=== PATIENT | male | born 1955 | race Caucasian/White ===

== ENCOUNTER 2019-10-18 21:00 | Emergency (ER) | payer OTHER ==
[2019-10-18] MEDS ORDERED: HYDROCODONE/APAP 5/325 MG TAB ONE (21:59)
--- NOTE | 2019-10-18 23:20 | ER ---
Nurse's Notes [facility] Name: Garrett Colon Age: 64 yrs Sex: Female : 1955 Arrival Date: 10/18/2019 Time: 21:06 Bed 2 Private MD: Diagnosis: Pain in right foot Presentation: 10/17 21:30 Chief complaint: Patient states: i have right foot sprain since July, xray was done for mg2 my ankle that time but they didn't do foot xray before. Coronavirus screen: Client denies travel out of the [place] in the last 14 days. At this time, the client does not indicate any symptoms associated with coronavirus-19. Ebola Screen: No symptoms or risks identified at this time. Initial Sepsis Screen: Does the patient meet any 2 criteria? No. Patient's initial sepsis screen is negative. Does the patient have a suspected source of infection? No. Patient's initial sepsis screen is negative. Risk Assessment: Do you want to hurt yourself or someone else? Patient reports no desire to harm self or others. Onset of symptoms was October 2019. 21:30 Method Of Arrival: Ambulatory mg2 21:30 Acuity: CHEIKH 4 mg2 Triage Assessment: 21:30 General: Appears uncomfortable, Behavior is cooperative. EENT: No deficits noted. mt2 Neuro: No deficits noted. Cardiovascular: No deficits noted. Respiratory: No deficits noted. GI: No deficits noted. : No deficits noted. Derm: No deficits noted. Musculoskeletal: Reports pain in right foot. Injury Description: twisted right ankle. Historical: - Allergies: 21:33 Erythromycin; mg2 - Home Meds: 21:33 anxiety medicine [Active]; mg2 - PMHx: 21:33 Asthma; anxiety; tremors; mg2 - PSHx: 21:33 None; mg2 - Immunization history:: Flu vaccine status is unknown. - Social history:: Smoking status: Patient denies any tobacco usage or history of. Patient/guardian denies using alcohol, street drugs, IV drugs. Screenin:33 Abuse screen: Denies threats or abuse. Denies injuries from another. Nutritional mg2 screening: No deficits noted. Tuberculosis screening: No symptoms or risk factors identified. Fall Risk None identified. Assessment: 21:33 General: Appears in no apparent distress. comfortable. Pain: Complains of pain in right mg2 foot. Neuro: Level of Consciousness is awake, alert, obeys commands, Oriented to person, place, time, situation. Cardiovascular: Capillary refill < 3 seconds Patient's skin is warm and dry. Respiratory: Airway is patent Respiratory effort is even, unlabored, Respiratory pattern is regular, symmetrical. GI: No signs and/or symptoms were reported involving the gastrointestinal system. : No signs and/or symptoms were reported regarding the genitourinary system. EENT: No signs and/or symptoms were reported regarding the EENT system. Derm: Skin is intact, is healthy with good turgor, Skin is pink, warm \T\ dry. normal. Musculoskeletal: Circulation, motion, and sensation intact. Capillary refill < 3 seconds, Reports pain in right foot. 22:17 Reassessment: Patient appears in no apparent distress at this time. Patient and/or mg2 family updated on plan of care and expected duration. Pain level reassessed. Patient is alert, oriented x 3, equal unlabored respirations, skin warm/dry/pink. 23:26 Reassessment: Patient and/or family updated on plan of care and expected duration. Pain mt2 level reassessed. Patient is alert, oriented x 3, equal unlabored respirations, skin warm/dry/pink. Patient denies pain at this time. General: Appears comfortable, Behavior is cooperative. Pain: Denies pain. Vital Signs: 21:30 BP 144 / 101; Pulse 88; Resp 18; Temp 97.6; Pulse Ox 95% on R/A; Weight 90.72 kg; mg2 Height 5 ft. 11 in. (180.34 cm); 22:02 BP 127 / 79; Pulse 82; Resp 16; Pulse Ox 97% on R/A; Pain 6/10; mt2 22:16 Pulse 77; Resp 18; Pulse Ox 95% on R/A; mg2 22:17 BP 134 / 84; mg2 23:17 BP 138 / 87; Pulse 76; Resp 18; Pulse Ox 98% on R/A; mg2 21:30 Body Mass Index 27.89 (90.72 kg, 180.34 cm) mg2 ED Course: 21:06 Patient arrived in ED. cf2 21:21 Mat Patel RN is Primary Nurse. mg2 21:24 Stas Maharaj NP is PHCP. pm1 21:24 Jefferson Santos MD is Attending Physician. pm1 21:32 Triage completed. mg2 21:33 Arm band placed on. mg2 21:34 Patient has correct armband on for positive identification. mg2 21:34 No provider procedures requiring assistance completed. mg2 21:49 Foot Right 3 View XRAY In Process Unspecified. EDMS 23:27 Patient did not have IV access during this emergency room visit. mt2 Administered Medications: 21:49 Drug: [place] 5 mg-325 mg 1 tabs Route: PO; mg2 22:17 Follow up: Response: No adverse reaction; RASS: Alert and Calm (0) mg2 22:33 Follow up: Response: No adverse reaction; Pain is decreased mt2 Outcome: 23:20 Discharge ordered by MD. pm1 23:26 Discharged to home ambulatory. mt2 23:26 Condition: good 23:26 Discharge instructions given to Instructed on discharge instructions, follow up and referral plans. medication usage, Demonstrated understanding of instructions, follow-up care, medications, Prescriptions given X 1. 23:56 Patient left the ED. mg2 Signatures: Dispatcher [employer] EDUT Stas Maharaj TRUCK HOP TRUCK HOP pm1 Mat Patel, RN RN mg2 Shivani Nagel cf2 Sakina Corbin RN RN mt2 Corrections: (The following items were deleted from the chart) 23:56 23:26 Discharge instructions given to Instructed on discharge instructions, follow up mg2 and referral plans. medication usage, Demonstrated understanding of instructions, follow-up care, medications, mt2
--- NOTE | 2019-10-18 23:20 | EDPHYS ---
Physician Documentation [facility] Name: Garrett Colon Age: 64 yrs Sex: Female : 1955 Arrival Date: 10/18/2019 Time: 21:06 Bed 2 Private MD: ED Physician Jefferson Santos HPI: 10/17 21:45 This 64 yrs old Female presents to ER via Ambulatory with complaints of Foot pm1 Pain, Foot Injury. 21:45 The patient presents with pain. The complaints affect the medial aspect of right foot pm1 and dorsum of right foot. Context: [place] resulted from stepped into a hole in the sand 2 months ago, the patient can fully bear weight, the patient is able to ambulate. Modifying factors: The symptoms are alleviated by nothing. the symptoms are aggravated by weight bearing, uneven surfaces. Associated signs and symptoms: The patient has no apparent associated signs or symptoms. Treatment prior to arrival includes: over the counter medications. Severity of symptoms: in the emergency department the symptoms are unchanged. Patient presents to the ER with complaints of right foot pain for the past 2 months. He stepped into a hole in the sand and went to the ER at that time. Was diagnosed with a foot sprain and is presenting today because his pain has not gone away. Historical: - Allergies: 21:33 Erythromycin; mg2 - Home Meds: 21:33 anxiety medicine [Active]; mg2 - PMHx: 21:33 Asthma; anxiety; tremors; mg2 - PSHx: 21:33 None; mg2 - Immunization history:: Flu vaccine status is unknown. - Social history:: Smoking status: Patient denies any tobacco usage or history of. Patient/guardian denies using alcohol, street drugs, IV drugs. ROS: 21:45 Constitutional: Negative for fever, chills, and weight loss, Cardiovascular: Negative pm1 for chest pain, palpitations, and edema, Respiratory: Negative for shortness of breath, cough, wheezing, and pleuritic chest pain. 21:45 Skin: Negative for injury, rash, and discoloration, Neuro: Negative for headache, weakness, numbness, tingling, and seizure. 21:45 MS/extremity: Positive for pain, of the dorsum of right foot and medial aspect of right foot, Negative for decreased range of motion, deformity. Exam: 21:45 Constitutional: This is a well developed, well nourished patient who is awake, alert, pm1 and in no acute distress. Skin: Warm, dry with normal turgor. Normal color with no rashes, no lesions, and no evidence of cellulitis. 21:45 Cardiovascular: Rate: normal, Rhythm: regular, Pulses: no pulse deficits are appreciated. 21:45 Respiratory: Exam negative for acute changes, respiratory distress, shortness of breath. 21:45 Musculoskeletal/extremity: Extremities: grossly normal except: noted in the dorsum of right foot and medial aspect of right foot: tenderness, There is no evidence of ecchymosis, erythema, swelling, ROM: intact in all extremities. Vital Signs: 21:30 BP 144 / 101; Pulse 88; Resp 18; Temp 97.6; Pulse Ox 95% on R/A; Weight 90.72 kg; mg2 Height 5 ft. 11 in. (180.34 cm); 22:02 BP 127 / 79; Pulse 82; Resp 16; Pulse Ox 97% on R/A; Pain 6/10; mt2 22:16 Pulse 77; Resp 18; Pulse Ox 95% on R/A; mg2 22:17 BP 134 / 84; mg2 23:17 BP 138 / 87; Pulse 76; Resp 18; Pulse Ox 98% on R/A; mg2 21:30 Body Mass Index 27.89 (90.72 kg, 180.34 cm) mg2 MDM: 21:24 Patient medically screened. pm1 23:19 Data reviewed: vital signs. Data interpreted: Pulse oximetry: on room air is 98 %. pm1 Interpretation: normal. Counseling: I had a detailed discussion with the patient and/or guardian regarding: the historical points, exam findings, and any diagnostic results supporting the discharge/admit diagnosis, radiology results, the need for outpatient follow up, to return to the emergency department if symptoms worsen or persist or if there are any questions or concerns that arise at home. 10/17 21:28 Order name: Foot Right 3 View XRAY pm1 Administered Medications: 21:49 Drug: [place] 5 mg-325 mg 1 tabs Route: PO; mg2 22:17 Follow up: Response: No adverse reaction; RASS: Alert and Calm (0) mg2 22:33 Follow up: Response: No adverse reaction; Pain is decreased mt2 Disposition: 10/18 07:02 Co-signature as Attending Physician, Jefferson Santos MD I agree with the assessment and tw4 plan of care. Disposition: 10/18/19 23:20 Discharged to Home. Impression: Pain in right foot. - Condition is Stable. - Discharge Instructions: Foot Pain. - Prescriptions for Tylenol- Codeine #3 300-30 mg Oral Tablet - take 2 tablets by ORAL route every 6 hours As needed; 20 tablet. - Medication Reconciliation Form, Thank You Letter, Antibiotic Education, Prescription Opioid Use form. - Follow up: Emergency Department; When: As needed; Reason: Worsening of condition. Follow up: Private Physician; When: 2 - 3 days; Reason: Recheck today's complaints, Continuance of care, Re-evaluation by your physician. - Problem is new. - Symptoms have improved. Signatures: Dispatcher [employer] EDMS Stas Maharaj, BELLY DUMP DRIVER BELLY DUMP DRIVER pm1 Jefferson Santos MD MD tw4 Mat Patel RN RN mg2 Sakina Corbin RN mt2 Corrections: (The following items were deleted from the chart) 10/17 23:56 23:20 10/18/2019 23:20 Discharged to Home. Impression: Pain in right foot. Condition is mg2 Stable. Forms are Medication Reconciliation Form, Thank You Letter, Antibiotic Education, Prescription Opioid Use. Follow up: Emergency Department; When: As needed; Reason: Worsening of condition. Follow up: Private Physician; When: 2 - 3 days; Reason: Recheck today's complaints, Continuance of care, Re-evaluation by your physician. Problem is new. Symptoms have improved. pm1
--- NOTE | 2019-10-19 08:13 | RAD REPORT ---
EXAM DESCRIPTION: RAD - Foot Right 3 View - 10/18/2019 9:51 pm CLINICAL HISTORY: PAIN, persistent foot pain following trauma COMPARISON: No comparisonsNone. FINDINGS: No fracture, dislocation or periosteal reaction. Benign punctate sclerotic focus in the fi rst proximal phalanx. No plantar spur of or Achilles spur. No air or foreign body in the soft tissues. IMPRESSION: Negative right foot examination. Continued, unexplained foot or ankle pain could be further evaluated with MR imaging.
[2019-10-19 18:44] VITALS: TEMP 97.6
[2019-10-19 18:48] VITALS: BP 138/87; O2SAT 98
== END 2019-10-18 23:56 | disposition home or self-care (01) ==
LOC: EDSEX → ER 21:00
DX: M79.671 Pain in right foot (principal); F41.9 Anxiety disorder, unspecified; Z88.3 Allergy status to other anti-infective agents
CPT/HCPCS: 99283